=== PATIENT | female | born 1945 | race Caucasian/White ===

== ENCOUNTER 2020-11-22 17:36 | Emergency (ER) | payer MEDICARE, OTHER | END 2020-11-22 18:23 | disposition home or self-care (01) | LOC: NAV ERS 17:36 | DX: S01.01XA Laceration without foreign body of scalp, initial encounter (principal); I10 Essential (primary) hypertension; E78.00 Pure hypercholesterolemia, unspecified; E03.9 Hypothyroidism, unspecified; F17.293 Nicotine dependence, other tobacco product, with withdrawal; Z79.899 Other long term (current) drug therapy | CPT/HCPCS: 12004 ==